=== PATIENT | female | born 1965 | race Caucasian/White ===

== ENCOUNTER 2019-11-19 16:01 | Emergency (ER) | payer OTHER ==
[2019-11-19] MEDS ORDERED: Acetaminophen 500 MG TAB ONE (17:39)
[2019-11-19] MEDS ORDERED: Ketorolac Tromethamine 30 MG/ML VIAL ONE (17:44)
--- NOTE | 2019-11-19 18:27 | RAD ---
THREE VIEWS OF RIGHT ANKLE: 11/19/19 COMPARISON: None. HISTORY: Right ankle pain. FINDINGS: The bones are demineralized, limiting assessment for a nondisplaced fracture. No displaced fracture o r evidence of dislocation is seen. There is enthesophyte formation at the insertion of the Achilles tendon. IMPRESSION: Osteopenia with no displaced fracture or dislocation noted. POS: [facility]
--- NOTE | 2019-11-19 18:31 | RAD ---
FRONTAL AND LATERAL IMAGING RIGHT TIBIA/FIBULA: 11/19/19 COMPARISON: None. HISTORY: Ankle pain radiating into the calf. FINDINGS: There is a right knee arthroplasty. The bones are demineralized. No displaced fracture or evidence of dislocation. IMPRESSION: Osteopenia. Evidence of right total knee arthroplasty. POS: [facility]
== END 2019-11-19 19:24 | disposition home or self-care (01) ==
LOC: ERS 16:01
DX: M25.571 Pain in right ankle and joints of right foot (principal); F41.9 Anxiety disorder, unspecified; F17.210 Nicotine dependence, cigarettes, uncomplicated; Z79.899 Other long term (current) drug therapy
CPT/HCPCS: 96372; J1885

== ENCOUNTER 2019-12-30 12:13 | Outpatient (CLI) | payer OTHER ==
--- NOTE | 2019-12-30 14:52 | MRI ---
Exam: BRACHIAL PLEXUS MRI WITH AND WITHOUT CONTRAST: HISTORY: Right shoulder pain, arm pain, hand pain. Associated numbness. Progressively worsening sympt oms. TECHNIQUE: A left and right brachial plexus MRI is performed with and without contrast. Multisequenti al, multiplanar imaging is performed. FINDINGS: Bilaterally, there is no evidence of a soft tissue mass in the axilla. Visualized mediastinum and lung parenchyma as well as the upper abdomen are unremarkable. There is appropriate signal intensity in the visualized osseous structures. Visualized spinal cord and brain parenchyma are grossly unremarkable. Right brachial plexus: There is appropriate fat attenuation in the axilla. There is appropriate signa l intensity of the scalene muscles. There does not appear to be any nodularity, thickening or abnormal enhancement of the right brachial plexus. Left brachial plexus: There is appropriate fat attenuation in the axilla. Appropriate signal intensit y of the scalene muscles. There does not appear to be any nodularity, thickening or abnormal enhancement of the left brachial plexus IMPRESSION: Unremarkable left and right brachial plexus MRI. Transcribed Date/Time: 12/30/2019 3:20 PM
== END 2019-12-30 12:14 | disposition home or self-care (01) ==
LOC: SCSMRI 12:13
PROVIDERS: ATTEND Psychiatry & Neurology Neurology
DX: G54.0 Brachial plexus disorders (principal)
CPT/HCPCS: 70543

== ENCOUNTER 2020-02-16 11:24 | Outpatient (CLI) | payer OTHER ==
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
[2020-02-16] MEDS ORDERED: Iopamidol 370 76% 100 ML VIAL ONE (15:37)
== END 2020-02-16 11:25 | disposition home or self-care (01) ==
LOC: CT 11:24
PROVIDERS: ATTEND Thoracic Surgery (Cardiothoracic Vascular Surgery)
DX: S42.001A Fracture of unspecified part of right clavicle, initial encounter for closed fracture (principal); E27.8 Other specified disorders of adrenal gland
CPT/HCPCS: 71275; Q9967

== ENCOUNTER 2020-07-14 08:54 | Observation (INO) | payer OTHER ==
[2020-07-12 11:05] VITALS: BMI 30.9
[2020-07-14] MEDS ORDERED: Ondansetron PF 4 MG/2 ML Vial ONE (09:10)
[2020-07-14] MEDS ORDERED: EPHEDRINE 25 MG/5 ML SYRINGE ONE (09:10)
[2020-07-14] MEDS ORDERED: PHENYLEPHRINE-NS 100 MCG/ML 10 ML SYRINGE ONE (09:10)
[2020-07-14] MEDS ORDERED: Glycopyrrolate 0.2 MG/ML 5 ML SYRINGE ONE (09:10)
[2020-07-14] MEDS ORDERED: Rocuronium Bromide 10 MG/ML (10ML VIAL) ONE (09:10)
[2020-07-14] MEDS ORDERED: PROPOFOL 200 MG/20 ML VIAL ONE (09:10)
[2020-07-14] MEDS ORDERED: Metoclopramide HCl 10 MG/2 ML VIAL ONE (09:10)
[2020-07-14] MEDS ORDERED: Ketorolac Tromethamine 30 MG/ML VIAL ONE (09:10)
[2020-07-14] MEDS ORDERED: Dexamethasone 20 MG/5 ML VIAL ONE (09:10)
[2020-07-14] MEDS ORDERED: Lidocaine 1% PF 5 ML VIAL ONE (09:10)
[2020-07-14] MEDS ORDERED: Vancomycin 1 GM/200 ML BAG ONE (10:20)
[2020-07-14] MEDS ORDERED: Fentanyl 100 MCG/2 ML VIAL ONE ×2 (11:42→15:21)
[2020-07-14] MEDS ORDERED: HYDROmorphone 0.5 MG/0.5 ML SYRINGE ONE (11:42)
[2020-07-14] MEDS ORDERED: Bupivacaine HCl 0.5%/Epinephrine 1:200,000/PF 30 ml Vial ONE (12:29)
[2020-07-14] MEDS ORDERED: Promethazine HCl 25 MG/ML VIAL IM PRN ×2 (13:21→15:25)
[2020-07-14] MEDS ORDERED: Promethazine HCl 25 MG/ML VIAL SLOW IVP PRN (13:21)
[2020-07-14] MEDS ORDERED: PACU-Morphine 4MG/ML VIAL SLOW IVP PRN (13:21)
[2020-07-14] MEDS ORDERED: HYDROmorphone 2 MG/ML VIAL SLOW IVP PRN (13:21)
[2020-07-14] MEDS ORDERED: Ondansetron HCl/PF 4 MG/2 ML Vial IVP PRN (13:21)
--- NOTE | 2020-07-14 14:45 | RAD ---
EXAM: 2 views of the right clavicle HISTORY: Clavicle fracture COMPARISON: Chest x-ray 07/11/2020 FINDINGS/IMPRESSION: Limited intraoperative fluoroscopic views of the right clavicle shows the patien t is status post plate and screw fixation of the previously seen clavicle fracture.
[2020-07-14] MEDS ORDERED: HYDROmorphone 2 MG/ML VIAL ONE (14:51)
[2020-07-14] MEDS ORDERED: traMADol HCl 50 MG TAB PO PRN ×2 (15:10)
[2020-07-14] MEDS ORDERED: Bisacodyl 10 MG SUPP PR PRN (15:10)
[2020-07-14] MEDS ORDERED: Methocarbamol 500 MG TAB PO PRN (15:10)
[2020-07-14] MEDS ORDERED: diphenhydrAMINE 50 MG CAP PO PRN (15:10)
[2020-07-14] MEDS ORDERED: Ondansetron ODT 4 MG TAB PO PRN (15:10)
[2020-07-14] MEDS ORDERED: Morphine 2 MG/ML VIAL SLOW IVP PRN (15:10)
[2020-07-14] MEDS ORDERED: Ondansetron PF 4 MG/2 ML Vial IVP PRN (15:10)
[2020-07-14] MEDS ORDERED: Acetaminophen 325 MG TAB PO PRN (15:10)
[2020-07-14] MEDS ORDERED: Milk Of Magnesia 30 ML UDCUP PO PRN (15:10)
[2020-07-14] MEDS ORDERED: Methocarbamol 1 GM/10 ML VIAL SLOW IVP PRN (15:10)
[2020-07-14] MEDS ORDERED: HYDROcodone/Acetaminophen 10/325 mg Tablet PO PRN ×2 (15:10)
[2020-07-14] MEDS ORDERED: Zolpidem Tartrate 5 MG TAB PO PRN (15:25)
[2020-07-14] MEDS ORDERED: fentaNYL Citrate/PF 2,000 MCG in Sodium Chloride 0.9% 60 ML IV PRN ×2 (15:25→19:04)
[2020-07-14] MEDS ORDERED: diphenhydrAMINE 50 MG/ML VIAL IM/IV PRN (15:25)
[2020-07-14] MEDS ORDERED: Naloxone HCl 0.4 mg/ml Vial IV PRN (15:25)
[2020-07-14] MEDS ORDERED: diphenhydrAMINE 25 MG CAP PO PRN (15:25)
[2020-07-14] MEDS: Acetaminophen 500 MG TAB PO SCH ×2 (16:00→21:35)
[2020-07-14] MEDS: Ketorolac Tromethamine 30 MG/ML VIAL IVP SCH (18:33)
[2020-07-14] MEDS: Lactated Ringer's 1,000 ML IV SCH (18:34)
[2020-07-14] MEDS: CEFAZOLIN 2 GM in Premix Bag 1 BAG IVPB SCH (21:00)
[2020-07-14] MEDS: Gabapentin 300 MG CAP PO SCH (21:35)
[2020-07-14] MEDS: Famotidine 20 MG TAB PO SCH (21:35)
[2020-07-15] MEDS: Ketorolac Tromethamine 30 MG/ML VIAL IVP SCH ×3 (00:42→11:39)
[2020-07-15] MEDS ORDERED: Vancomycin HCl 1.5 GM in Sodium Chloride 0.9% 250 ML 300 ML IVPB SCH (01:00)
[2020-07-15] MEDS ORDERED: Vancomycin 1.5 GRAM/300 ML BAG 1.5 GM in Premix Bag 1 BAG IVPB SCH (01:00)
[2020-07-15] MEDS: Acetaminophen 500 MG TAB PO SCH ×3 (04:42→13:13)
[2020-07-15] MEDS: CEFAZOLIN 2 GM in Premix Bag 1 BAG IVPB SCH (05:00)
[2020-07-15] MEDS: Ondansetron PF 4 MG/2 ML Vial IVP PRN ×2 (05:35→10:07)
[2020-07-15] MEDS: Lactated Ringer's 1,000 ML IV SCH (06:10)
[2020-07-15] MEDS: Famotidine 20 MG TAB PO SCH (08:28)
[2020-07-15] MEDS: Gabapentin 300 MG CAP PO SCH ×2 (08:28→14:39)
[2020-07-15] MEDS ORDERED: Estrogens, Conjugated 0.3 MG TAB PO SCH (09:00)
[2020-07-15] MEDS ORDERED: Cyclobenzaprine 10 MG TAB PO SCH (09:00)
[2020-07-15] MEDS ORDERED: Fentanyl 100 MCG/2 ML VIAL SLOW IVP PRN (10:06)
[2020-07-15] MEDS ORDERED: HYDROcodone/Acetaminophen 10/325 mg Tablet PO PRN ×2 (10:07)
[2020-07-15] MEDS ORDERED: traMADol HCl 50 MG TAB PO PRN (10:08)
[2020-07-15] MEDS ORDERED: HYDROcodone/Acetaminophen 10/325 mg Tablet PO SCH (10:15)
[2020-07-15] MEDS ORDERED: Ibuprofen 200 MG TAB PO SCH ×2 (10:15→23:59)
[2020-07-15 16:55] VITALS: BP 122/68; TEMP 97.8
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
== END 2020-07-15 16:56 | disposition home or self-care (01) ==
LOC: SDC 08:54 → SJJU 16:52
PROVIDERS: ADMIT Orthopaedic Surgery; ATTEND Orthopaedic Surgery
PROC: 0PS904Z Reposition Right Clavicle with Internal Fixation Device, Open Approach (ICD-10-PCS; principal; 2020-07-14)
PROC: 0PU907Z Supplement Right Clavicle with Autologous Tissue Substitute, Open Approach (ICD-10-PCS; 2020-07-14)
DX: S42.001A Fracture of unspecified part of right clavicle, initial encounter for closed fracture (principal); G54.0 Brachial plexus disorders; F41.9 Anxiety disorder, unspecified; F32.9 Major depressive disorder, single episode, unspecified; M19.90 Unspecified osteoarthritis, unspecified site; Z79.899 Other long term (current) drug therapy; Z88.5 Allergy status to narcotic agent; Z88.8 Allergy status to other drugs, medicaments and biological substances
CPT/HCPCS: 76000; 96361; 96365; 96366; 96367; 96375; 96376; C1713; G0378; J0670; J0690; J1100; J1170; J1885; J2405; J2704; J2765; J3010; J3370; J3490; J7050

== ENCOUNTER → 2020-08-19 | Day surgery (SDC) | payer OTHER ==
[~2020-08-19] MED LIST: Heparin 1,000 UNITS/ML VIAL ONE
--- NOTE | 2020-08-19 14:31 | SPC ---
SPC CVP LINE PICC INITAL >5: 08/19/2020 2:28 PM INDICATION: Osteomyelitis; need for long-term IV antibiotics PROCEDURE: Peripherally placed 44 cm single lumen power PICC line. PICC Line Placement: The right arm was prepped and draped in sterile fashion. One percent lidocaine was used for local anesthetic. Under fluoroscopic and ultrasound guidance, the right basilic vein was patent and accessed with a martin ropuncture needle. A guide wire was then advanced into the right basilic vein. A vascular sheath was then advanced over a guide wire, and a single lumen PICC line was trimmed. The PICC line was then advanced into the central venous system. A final placement film demonstrates the tip of the catheter terminated in the caval-atrial junction. After confirmation of the catheter position, the catheter was sutured in place at the skin entry site . There was no immediate complication. Total fluoroscopic time 0.2 minutes. Total exposure 2957 mgray/sq cm IMPRESSION: Peripheral placement of a single lumen power PICC line into the right basilic vein using fluoroscopic and ultrasound guidance.
== END ==
LOC: SPEC 12:57
PROVIDERS: ATTEND Internal Medicine Infectious Disease
DX: M86.9 Osteomyelitis, unspecified (principal); Z88.5 Allergy status to narcotic agent; Z91.048 Other nonmedicinal substance allergy status
CPT/HCPCS: 36569; 96365; C1751; J0696; J1642; J1644; J1815

== ENCOUNTER 2021-02-07 11:42 | Outpatient (CLI) | payer OTHER | END 2021-02-07 11:43 | disposition home or self-care (01) | LOC: BICMAMMO 11:42 | PROVIDERS: ATTEND Family Medicine | DX: Z12.31 Encounter for screening mammogram for malignant neoplasm of breast (principal); Z80.3 Family history of malignant neoplasm of breast | CPT/HCPCS: 77063; 77067 ==